=== PATIENT | female | born 1980 | race Caucasian/White ===

== ENCOUNTER 2024-04-17 10:41 | Outpatient (REF) | payer OTHER, SELFPAY ==
--- NOTE | ~2024-04-17 | XR_ITS ---
EXAMINATION: XR CHEST CLINICAL INFORMATION: Cough and fever COMPARISON: None available. TECHNIQUE: 2 views of the chest were obtained. FINDINGS: There is a biconvex thoracolumbar scoliosis. Heart size is normal. There is no evidence of CHF. Patchy consolidation is seen in left lung base consistent with pneumonia. No pleural effusions are seen. The right lung is clear. XR/XR chest 2V IMPRESSION: Left lower lobe pneumonia. Electronically signed by: Loc Diego MD 04/17/2024 02:00 PM EDT
== END 2024-04-17 10:42 | disposition home or self-care (01) ==
LOC: HO.HMGCX 10:41
PROVIDERS: Visit Provider Family Medicine
DX: R05.9 Cough, unspecified (principal); R50.9 Fever, unspecified
CPT/HCPCS: 71046